=== PATIENT | male | born 1955 | race African-American/Black ===

== ENCOUNTER 2018-06-20 07:50 | Emergency (ER) | payer MEDICARE, OTHER ==
[~2018-06-20] VITALS: Ht 185.4 cm; Wt 86.2 kg
[2018-06-20] MEDS ORDERED: GLIPIZIDE10 MG PO (08:12)
[2018-06-20] MEDS ORDERED: LUMIGAN2.5 ML BOTH EYES (08:12)
[2018-06-20] MEDS ORDERED: HYDROCHLOROTH12.5 M2 ORAL (08:12)
[2018-06-20] MEDS ORDERED: LOTENSIN HCT 11 EAC1 PO (08:12)
--- NOTE | 2018-06-20 08:17 | Emergency Room Report ---
History of Present Illness General Chief Complaint: To Be Triaged Source: Patient Present Illness HPI Patient presents with nausea and gagging with epigastric fullness and dizziness when he stands up. He's been ill for 2 days. His is also sick with vomiting and diarrhea. He doesn't believe he ate any unusual foods. He denies any fevers or chills. He feels weak when he stands. He does have hunger at this time but feels nauseated when he tries to eat. He denies dysuria or hematuria. He denies chest pain or exertional dyspnea. He occasional has poor circulation to his legs in the morning but this usually gets better with stretching. The patient had a stent placed last November. Patient has hypertension and is taking Lotensin and Hydrocort Dyazide. The patient has diabetes and his sugars of been from the 90s to the low 100s. He is on oral medication and does not take insulin. The patient has glaucoma and takes 4 different eyedrops. Allergies: Coded Allergies: No Known Allergies (Unverified , 03/12/11) Patient History Past Medical History: see triage record Past Surgical History: PTCA, other - foot and eye surgery Social History: Denies: smoking, alcohol use, drug use Social History Narrative retired from [employer], to [employer] Reviewed Nursing Documentation: PMH: Agreed; PSxH: Agreed Review of Systems All Other Systems: negative except mentioned in HPI Physical Exam Vital Signs Date Time Temp Pulse Resp B/P (MAP) Pulse Ox O2 Delivery O2 Flow Rate FiO2 06/20/18 08:08 98.6 78 17 133/79 100 Sp02 EP Interpretation: reviewed, normal General Appearance: well appearing, no apparent distress, GCS 15 Head: normocephalic Eyes: bilateral eye normal inspection, bilateral eye PERRL ENT: dry mucus membranes - slightly Neck: supple Respiratory: lungs clear, normal breath sounds Cardiovascular #1: regular rate, rhythm Cardiovascular #2: 2+ radial (R) Gastrointestinal: normal inspection, normal bowel sounds, non tender, no mass, non-distended, scaphoid Genitourinary: no CVA tenderness Musculoskeletal: back normal, gait/station normal, normal range of motion Neurologic: alert, oriented x3, grossly normal Psychiatric: mood/affect normal Skin: normal inspection, warm/dry Medical Decision Making Diagnostic Impression: Primary Impression: Gastroenteritis Additional Impressions: Renal insufficiency Dehydration ER Course Patient presents with nausea abdominal fullness in difficulty eating with dizziness when he stands. Differential includes gastritis, acute myocardial infarction, gastroenteritis, dehydration, electrolyte abnormalities amongst others. He has ill contacts - his . Evaluation will be with EKG, and labs. The patient will be treated with IV hydration, Zofran and Pepcid.. EKG with normal sinus rhythm as and read as normal however there is ST depression inferiorly. CBC and CMP normal except for elevated creatinine. Urinalysis clear. Negative lipase and troponin. Patient improved with IV hydration and medication. No longer dizzy when standing. Able to tolerate oral intake. Discussed results including elevated creatinine with patient and the need for follow-up. Patient stable for outpatient observation and treatment. Laboratory Tests Test 06/20/18 08:17 White Blood Count 3.6 K/UL (4.8-10.8) L Red Blood Count 4.10 M/UL (4.70-6.10) L Hemoglobin 9.6 G/DL (14.2-18.0) L Hematocrit 31.7 % (42.0-52.0) L Mean Corpuscular Volume 77 FL (80-99) L Mean Corpuscular Hemoglobin 23.5 PG (27.0-31.0) L Mean Corpuscular Hemoglobin Concent 30.3 G/DL (32.0-36.0) L Red Cell Distribution Width 15.4 % (11.6-14.8) H Platelet Count 216 K/UL (150-450) Mean Platelet Volume 6.4 FL (6.5-10.1) L Neutrophils (%) (Auto) 72.6 % (45.0-75.0) Lymphocytes (%) (Auto) 15.2 % (20.0-45.0) L Monocytes (%) (Auto) 7.7 % (1.0-10.0) Eosinophils (%) (Auto) 3.1 % (0.0-3.0) H Basophils (%) (Auto) 1.4 % (0.0-2.0) Prothrombin Time 11.1 SEC (9.30-11.50) Prothrombin Time INR 1.1 (0.9-1.1) PTT 23 SEC (23-33) Urine Color Yellow Urine Appearance Clear Urine pH 5 (4.5-8.0) Urine Specific [place] 1.020 (1.005-1.035) Urine Protein 1+ (NEGATIVE) H Urine Glucose (UA) Negative (NEGATIVE) Urine Ketones 1+ (NEGATIVE) H Urine Blood Negative (NEGATIVE) Urine Nitrite Negative (NEGATIVE) Urine Bilirubin Negative (NEGATIVE) Urine Urobilinogen 1 MG/DL (0.0-1.0) H Urine Leukocyte Esterase 1+ (NEGATIVE) H Urine RBC 0-2 /HPF (0 - 0) H Urine WBC 2-4 /HPF (0 - 0) Urine Squamous Epithelial Cells Occasional /LPF Urine Bacteria Occasional /HPF (NONE) Urine Mucus Few /LPF (NONE/OCC) H Sodium Level 141 MMOL/L (136-145) Potassium Level 3.7 MMOL/L (3.5-5.1) Chloride Level 104 MMOL/L (98-107) Carbon Dioxide Level 24 MMOL/L (21-32) Anion Gap 13 mmol/L (5-15) Blood Urea Nitrogen 17 mg/dL (7-18) Creatinine 1.7 MG/DL (0.55-1.30) H Estimate Glomerular Filtration Rate 49.4 mL/min (>60) Glucose Level 148 MG/DL (74-106) H Calcium Level 8.8 MG/DL (8.5-10.1) Total Bilirubin 0.5 MG/DL (0.2-1.0) Aspartate Amino Transferase (AST) 20 U/L (15-37) Alanine Aminotransferase (ALT) 14 U/L (12-78) Alkaline Phosphatase 51 U/L (46-116) Troponin I 0.023 ng/mL (0.000-0.056) Total Protein 7.0 G/DL (6.4-8.2) Albumin 3.4 G/DL (3.4-5.0) Globulin 3.6 g/dL Albumin/Globulin Ratio 0.9 (1.0-2.7) L Lipase 62 U/L (73-393) L EKG Diagnostic Results Rate: normal Rhythm: NSR ST Segments: no acute changes - ST depression and inversion inferiorly Rhythm Strip Diag. Results EP Interpretation: yes Rhythm: NSR, no PVC's, no ectopy Last Vital Signs Date Time Temp Pulse Resp B/P (MAP) Pulse Ox O2 Delivery O2 Flow Rate FiO2 06/20/18 12:30 97.8 81 17 132/74 98 Room Air Status: improved Disposition: HOME, SELF-CARE Condition: Improved Scripts Ondansetron Odt* (ZOFRAN ODT*) 4 Mg Tab.rapdis 4 MG BC EVERY 8 HOURS, #6 TAB 1 Refill Prov: Nghia Navarro MD 06/20/18 Referrals: NON PHYSICIAN (PCP) Nghia Navarro MD Jun 20, 2018 08:17
[2018-06-20 08:21] VITALS: BP 132/72
--- NOTE | 2018-06-20 08:21 | NUR ---
ED Nurse Note: pt walked in to ER c/o N/V with dizziness since this morning. pt aao x4 calm and cooperative and ambulatory. skin clean and intact.
[2018-06-20 08:56] LABS: BASOPHILS % (AUTO) 1.4 % (0.0-2.0); EOSINOPHILS % (AUTO) 3.1 % (0.0-3.0); HEMATOCRIT 31.7 % (42.0-52.0); HEMOGLOBIN 9.6 G/DL (14.2-18.0); LYMPHOCYTES % (AUTO) 15.2 % (20.0-45.0); MEAN CORPUSCULAR VOLUME 77 FL (80-99); MONOCYTES % (AUTO) 7.7 % (1.0-10.0); NEUTROPHILS % (AUTO) 72.6 % (45.0-75.0); PLATELET COUNT 216 K/UL (150-450); RED CELL DISTRIBUTION WIDTH 15.4 % (11.6-14.8); WHITE BLOOD COUNT 3.6 K/UL (4.8-10.8)
[2018-06-20 08:58] LABS: APPEARANCE,URINE CLEAR; BILIRUBIN, URINE NEGATIVE (NEGATIVE); GLUCOSE, URINE (UA) NEGATIVE (NEGATIVE); KETONES,URINE 1+ (NEGATIVE); LEUKOCYTE ESTERASE ,URINE 1+ (NEGATIVE); NITRITE,URINE NEGATIVE (NEGATIVE); PH,URINE 5 (4.5-8.0); PROTEIN,URINE 1+ (NEGATIVE); UROBILINOGEN,URINE 1 MG/DL (0.0-1.0)
[2018-06-20 09:06] LABS: INR 1.1 (0.9-1.1)
[2018-06-20 09:11] LABS: COLOR,URINE YELLOW
[2018-06-20 09:21] LABS: ANION GAP 13 mmol/L (5-15); BLOOD UREA NITROGEN 17 mg/dL (7-18); CALCIUM 8.8 MG/DL (8.5-10.1); CARBON DIOXIDE 24 MMOL/L (21-32); CHLORIDE 104 MMOL/L (98-107); CREATININE 1.7 MG/DL (0.55-1.30); POTASSIUM 3.7 MMOL/L (3.5-5.1); SODIUM 141 MMOL/L (136-145)
[2018-06-20 09:24] LABS: ALANINE AMINOTRANSFERASE 14 U/L (12-78); ALBUMIN 3.4 G/DL (3.4-5.0); ALBUMIN/GLOBULIN RATIO 0.9 (1.0-2.7); ALKALINE PHOSPHATASE 51 U/L (46-116); ASPARTATE AMINO TRANSFERASE 20 U/L (15-37); BILIRUBIN,TOTAL 0.5 MG/DL (0.2-1.0)
[2018-06-20 10:08] VITALS: BP 132/71
[2018-06-20] MEDS ORDERED: ONDANSETRON ODT4 MG BC (11:35)
[2018-06-20 12:00] VITALS: BP 134/68
[2018-06-20 12:30] VITALS: BP 132/74
--- NOTE | 2018-06-20 12:30 | NUR ---
ER DISCHARGE NOTE: Patient is cleared to be discharged per ERMD, pt is aox4, on room air, with stable vital signs. pt was given dc and prescription instructions, pt was able to verbalize understanding, pt id band and iv site removed without complications. pt is able to ambulate with steady gait. pt took all belongings.
--- NOTE | 2018-06-22 19:14 | Cardiology Report ---
APPROVED REPORT EKG Measurement Heart [id number] Normal sinus rhythm Normal ECG
== END 2018-06-20 12:30 | disposition home or self-care (01) ==
LOC: EMR 08:07
DX: K52.9 Noninfective gastroenteritis and colitis, unspecified (principal); N28.9 Disorder of kidney and ureter, unspecified; E86.0 Dehydration; I10 Essential (primary) hypertension
CPT/HCPCS: 36415; 80053; 81003; 83690; 84484; 85025; 85610; 85730; 93005; 96361; 96374; 96375; 99284; J2405; S0028